=== PATIENT | male | born 1995 | race Caucasian/White ===

== ENCOUNTER 2020-02-07 21:08 | Inpatient (IN) | payer OTHER ==
[~2020-02-07] VITALS: Ht 175.3 cm; Wt 97.3 kg
--- NOTE | 2020-02-07 22:00 | REPVR ---
PROCEDURE INFORMATION: Exam: CT Head Without Contrast Exam date and time: 02/07/2020 9:43 PM Age: 25 years old Clinical indication: Other: New onset hallucinations TECHNIQUE: Imaging protocol: Computed tomography of the head without contrast. Axial and coronal reformatted images were created and reviewed. Radiation optimization: All CT scans at this facility use at least one of these dose optimization techniques: automated exposure control; mA and/or kV adjustment per patient size (includes targeted exams where dose is matched to clinical indication); or iterative reconstruction. COMPARISON: No relevant prior studies available. FINDINGS: Brain: No CT evidence of acute intracranial hemorrhage or acute territorial infarction. No significant mass effect or midline shift. Basal cisterns patent. Cerebral ventricles: Normal in size and configuration. Bones/joints: No acute osseous abnormality. Paranasal sinuses: Unremarkable. No fluid levels. Mastoid air cells: Grossly unremarkable. Soft tissues: Grossly unremarkable. IMPRESSION: No CT evidence of acute intracranial pathology. Electronically signed by: Breezy Ricketts On 02/07/2020 22:00:44 PM
[2020-02-07 22:14] LABS: HEMATOCRIT 46.3 % (42.0-52.0); HEMOGLOBIN 15.5 g/dl (13.5-17.5); MEAN CORPUSCULAR HEMOGLOBIN 27.6 pg (27.0-33.0); MEAN CORPUSCULAR HGB CONC 33.5 g/dl (32.0-36.5); MEAN CORPUSCULAR VOLUME 82.5 fl (80.0-96.0); PLATELET COUNT, AUTOMATED 164 10^3/uL (150-450); RED BLOOD COUNT 5.61 10^6/uL (4.30-6.10)
[2020-02-07 22:32] LABS: AMPHETAMINES LEVEL URINE NEGATIVE (NEGATIVE); BARBITURATES URINE NEGATIVE (NEGATIVE); BENZODIAZEPINES URINE NEGATIVE (NEGATIVE); CANNABINOIDS URINE NEGATIVE (NEGATIVE); COCAINE METABOLITE URINE NEGATIVE (NEGATIVE); METHADONE URINE NEGATIVE (NEGATIVE); OPIATES URINE NEGATIVE (NEGATIVE); PHENCYCLIDINE URINE NEGATIVE (NEGATIVE)
[2020-02-07 22:46] LABS: ALBUMIN 4.7 GM/DL (3.2-5.2); ALT/SGPT 31 U/L (12-78); BILIRUBIN,DIRECT 0.3 MG/DL (0.0-0.2); BILIRUBIN,TOTAL 0.9 MG/DL (0.2-1.0); BLOOD UREA NITROGEN 15 MG/DL (7-18); CALCIUM LEVEL 9.7 MG/DL (8.5-10.1); CARBON DIOXIDE LEVEL 27 MEQ/L (21-32); CHLORIDE LEVEL 105 MEQ/L (98-107); CREATININE FOR GFR 1.21 MG/DL (0.70-1.30); GLOMERULAR FILTRATION RATE > 60.0 (>60); GLUCOSE, FASTING 78 MG/DL (70-100); POTASSIUM SERUM 3.7 MEQ/L (3.5-5.1); SALICYLATE LEVEL < 1.7 MG/DL (5.0-30.0); SODIUM LEVEL 139 MEQ/L (136-145); THYROID STIMULATING HORMONE 0.747 uIU/ML (0.358-3.740); TOTAL PROTEIN 7.7 GM/DL (6.4-8.2)
[2020-02-07 22:47] LABS: ACETAMINOPHEN LEVEL < 2.0 UG/ML (10.0-30.0); ETHYL ALCOHOL (ETHANOL) < 0.003 % (0.000-0.010)
--- NOTE | 2020-02-08 08:41 | ECGEPIP ---
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
[2020-02-09] MEDS ORDERED: NICOTINE 21MG/24HR 1 EA TRANSDERMAL TD ONE (14:00)
[2020-02-09] MEDS ORDERED: traZODone 50 MG TAB PO PRN (17:45)
[2020-02-09] MEDS ORDERED: MAALOX 30 ML SUSP *UDC PO PRN (17:45)
[2020-02-09] MEDS ORDERED: OLANZapine ORAL DISINTEGRATING TAB 5MG PO PRN (17:45)
[2020-02-09] MEDS ORDERED: ACETAMINOPHEN TAB 650MG DOSE (2X325MG) PO PRN (17:45)
[2020-02-09] MEDS ORDERED: MOM 30ML SUSPENSION UDC PO PRN (17:45)
[2020-02-09 20:26] VITALS: BP 127/64
[2020-02-09] MEDS: PALIPERIDONE 3 MG ER TAB (INVEGA) PO SCH (20:32)
[2020-02-10 06:34] VITALS: BP 126/68
--- NOTE | 2020-02-10 12:32 | HPEPDOC ---
[facility] Medical History & Physical Date of Admission Feb 10, 2020 Date of Service: Feb 10, 2020 History and Physical CHIEF COMPLAINT: Medical evaluation HISTORY OF PRESENT ILLNESS: 25-year-old male with no past medical history admitted to psychiatric unit for what the patient describes a mental breakdown as well as eating paranoid and hearing things. I was asked to evaluate the patient for medical problems. Patient tells me he has no past medical problems. I am asked to provide a medical assessment of patient admitted to the psychiatric unit. My assessment is limited to medical problems and does not address any psychiatric problems which is deferred to the in-house psychiatrist. PAST MEDICAL HISTORY: None PAST SURGICAL HISTORY: None SOCIAL HISTORY: Drinks alcohol 1-2 times a week with friends Smokes tobacco daily and a few cigarettes a day sometimes uses a vaporizer Denies illicit drug use FAMILY HISTORY: Patient not aware of any ALLERGIES: Please see below. REVIEW OF SYSTEMS: Constitutional: No sweating or weight loss Eyes: No eye pain or acute blurred vision HENT: No complaints of headache or sore throat Cadiovascular: No Chest pain or palpitations Pulm: No SOB or cough Gastrointestinal: No N/V, no abdominal pain. Genitourinary: No dysuria or hematuria Musculoskeletal: No back pain or joint pain Skin: No rash or jaundice Neurological: No weakness. HOME MEDICATIONS: Please see below. PHYSICAL EXAMINATION: Constitutional: Awake and alert, in no apparent distress ENT: Sclera are clear. Mucosa is moist. Respiratory: Lungs CTA bilaterally. No respiratory distress. No use of accessory muscles. Cardiovascular: RRR S1 and S2 are normal, no murmur Gastrointestinal: Abdomen is soft, non distended, non tender, BS present. Musculoskeletal: No edema. No joint deformities Neurologic: No focal neurological deficit. Mental Status: A&O x3, normal affect Skin: Warm, dry LABORATORY DATA: See below. IMAGING: None MICROBIOLOGY: Please see below. ASSESSMENT/PLAN 25-year-old male with no past medical history admitted to psychiatric unit for what the patient describes a mental breakdown as well as eating paranoid and hearing things. I was asked to evaluate the patient for medical problems. Patient tells me he has no past medical problems. # No medical problems. Psychiatric problems per psych. # Tobacco use: Advised patient to quit smoking. A [facility] Hospitalist Vital Signs Vital Signs Date Time Temp Pulse Resp B/P (MAP) Pulse Ox O2 Delivery O2 Flow Rate FiO2 02/10/20 08:22 Room Air 02/10/20 06:34 98.2 82 14 126/68 (87) 02/09/20 20:26 94 Laboratory Data Labs 24H Laboratory Tests 2 02/09/20 12:52: Coronavirus (COVID-19)(PCR) NEGATIVE Home Medications No Active Prescriptions or Reported Meds Allergies Coded Allergies: No Known Allergies (Unverified , 02/07/20) A-FIB/CHADSVASC A-FIB History Current/History of A-Fib/PAF?: No MARCIN BAKER MD Feb 10, 2020 12:32
[2020-02-10 17:21] VITALS: BP 124/77
[2020-02-10] MEDS ORDERED: NICOTINE 21MG/24HR 1 EA TRANSDERMAL TD ONE (21:45)
[2020-02-10] MEDS: PALIPERIDONE 3 MG ER TAB (INVEGA) PO SCH (22:03)
[2020-02-11 07:24] VITALS: BP 135/74
[2020-02-11] MEDS ORDERED: NICOTINE 21MG/24HR 1 EA TRANSDERMAL TD SCH (09:00)
[2020-02-11] MEDS ORDERED: TRAZ-252 PO (09:18)
--- NOTE | 2020-02-11 13:55 | MHHPE ---
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 He was brought in by his friends. According to the ER report patient came into [facility] ED on his own because he wanted to talk to someone about hearing voices. Patient denies suicidal or homicidal ideations or self harm. He reports hearing voices, started hearing voices on 02/05/2020 after drinking for 2 days. Stated that the voices telling him before he came to [facility] why are you going? We are spying on you. The voices are at times chanting and other times yelling at him. Patient stated voices do not tell him what to do. Patient had stated that his phone may be bugged. He had reported that he had not eaten since 02/05/2020, that he had returned from deployment 5 days ago and has been quarantined. He denies any drug abuse. Reporting not receiving any mental health services and denies any medication. Stated that he had a friend drop him off and would have a ride back to the [facility] if he was discharged. In my interview with him today he reported that he was hearing voices, that the voices were as if he was hearing a conversation, but not able to hear the words distinctly and he stated that he came into the Emergency Department to find out how he could get them to stop. He states that he has had poor sleep for the past 3 days. In the interview he reported that he had no auditory hallucinations at the time. SUICIDE/HOMICIDE HISTORY: Patient reports no past or current suicidal ideation, planning or intent, no history of gestures, no attempts. No reports of any homicidal ideation. No history of violence. ALCOHOL AND DRUG HISTORY: Patient reports that he drank from Saturday to Saturday, came back from deployment; he was in [place] for several months and came back approximately 3 weeks ago. States that he has been drinking because he has been home, but states that this has not been a problem before and he was not drinking during his deployment. PAST PSYCHIATRIC HISTORY: Patient reports that this is his first psychiatric admission, no prior hospitalization, no prior diagnosis, no medications. PAST MEDICAL HISTORY: Patient reports no chronic or acute medical history. States that his only concern is his insomnia, but reports that he has been able to sleep the last night. PAST SURGICAL HISTORY: No history of surgeries. MEDICATIONS: No current medications. ALLERGIES: No known drug allergies. FAMILY HISTORY: Patient reports no psychiatric history, has alcohol history on his father side, no complete suicides and denies that there is any medical history on either side of his family. SOCIAL HISTORY: Patient was born in [place], [place] to both parents. Reports that he has 2 brothers, 1 older, 1 younger. Currently lives at [place] 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 States he has been living at [place] for the last year and a half. No legal issues. Reports that he has no trauma history. Hobbies are working out, playing videos and sports, watching videos. He denies that he has any stressors. Supports are his friends and family. Patient denies any depression, no anxiety. He states that he does not have voices now and states that after his second day here he has not heard any. He believes that his poor sleep was a contributing factor to his admission. 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 He is alert and oriented. Hygiene and grooming is well kempt. Makes good eye contact. Speech is fluid, conversant, normal rate, tone and volume. Language skills are intact. Thought processes are linear, goal oriented, reality based. Thought content, he denies depression, anxiety; reporting auditory hallucinations possibly due to insomnia for the past 3 days. No paranoia. Abstract reasoning and computation: Good. Description of associations: None noted. Patient denies. Description of abnormal or psychotic thoughts: None noted. Patient denies. At this time he had reported in the ED that he had auditory hallucinations currently denying that he hears any voices. Insight and judgment: Good. Orientation: Alert and oriented to person, place, time and situation. Recent and remote memory: Good. Attention span and concentration: Good. Language: Expansive. Fund of knowledge: Average. Mood and affect: Euthymic and congruent to his stated mood. DIAGNOSES: * Adjustment disorder. * Insomnia. TREATMENT PLAN: Patient will be discharged tomorrow. He is not interested in any medication. We will review that tomorrow in his discharge interview. Treatment plan is to observe the patient overnight and see how he does. He will be afforded individual and group therapy, milieu therapy and a safe environment. [facility]
--- NOTE | 2020-02-11 15:45 | MHDSPDOC ---
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 Patient had initially reported no suicidal or homicidal ideation in the ED, and had no complaints of depression, paranoia, tiffany or delusional thinking. He reported that his only complaint was auditory hallucinations which started during several days of poor sleep and no sleep compounded with alcohol. He was amenable in the milieu and did not exhibit any abnormal psychiatric symptoms. His original complaint resolved prior to his admission to the unit. DISCHARGE ASSESSMENT: Patient is being discharged today. The patient did nto meet criteria for involuntary admission due to having a normal mental status exam, good insight into his sitation, He was engaged in the discharge process, being friendly and amenable in behavioral control and haven't been observed to have any concerning psychiatric symptoms. He declined a voluntary admission at this time and is being discharged in good kyle as I am unable to make case for holding the patient against their will. He does not have any historical risk factor of admissions and other interactions with psychiatry. 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 Speech: Is normal rate, tone and volume Language skills are intact Thought processes including: linear and goal oriented Thought content: denies depression, suicidal/homicidal ideation, planning or intent. He is not anxious, denies abnormal psychotic symptoms Abstract reasoning, and computation: Fair Description of associations: None notes, patient denies Description of abnormal or psychotic thoughts: None notes, patient denies Judgment: good Insight: good Orientation: alert and oriented to persona, place, time and situation Recent and remote memory: intact Attention span and concentration: fair Language: expansive Fund of knowledge: good Mood: "I am good Affect: constricted MEDICATIONS ON DISCHARGE: Trazodone 50 mg PRN HS for insomnia PLAN/FOLLOWUP ARRANGEMENTS: [facility] The amount of time spent in the coordination of care for this patient was approximately 20 minutes. Vital Signs/I&Os Vital Signs Date Time Temp Pulse Resp B/P (MAP) Pulse Ox O2 Delivery O2 Flow Rate FiO2 02/11/20 07:24 97.3 94 16 135/74 (94) 97 Room Air Medications Scheduled PRN Trazodone HCl (Trazodone HCl) 50 Mg Tablet, 50 MG PO QHSP PRN for INSOMNIA, #7 Allergies Coded Allergies: No Known Allergies (Unverified , 02/07/20) NEIL WEEKS NP Feb 11, 2020 15:23
== END 2020-02-11 11:45 | disposition home or self-care (01) | DRG 882 ==
LOC: M ED 21:08 → M ED INP 02-09 17:31 → M PSY 02-09 19:45
PROVIDERS: ADMIT Psychiatry & Neurology Psychiatry; ATTEND Psychiatry & Neurology Psychiatry
DX: F43.20 Adjustment disorder, unspecified (principal); F10.10 Alcohol abuse, uncomplicated; F17.210 Nicotine dependence, cigarettes, uncomplicated

== ENCOUNTER 2021-04-01 14:53 | Emergency (ER) | payer OTHER ==
[~2021-04-01] VITALS: Ht 172.7 cm; Wt 97.7 kg
[~2021-04-01 14:53] MED LIST: TRAZ-252 PO
[2021-04-01 17:18] LABS: AMPHETAMINES LEVEL URINE NEGATIVE (NEGATIVE); BARBITURATES URINE NEGATIVE (NEGATIVE); BENZODIAZEPINES URINE NEGATIVE (NEGATIVE); CANNABINOIDS URINE NEGATIVE (NEGATIVE); COCAINE METABOLITE URINE NEGATIVE (NEGATIVE); METHADONE URINE NEGATIVE (NEGATIVE); OPIATES URINE NEGATIVE (NEGATIVE); PHENCYCLIDINE URINE NEGATIVE (NEGATIVE)
[2021-04-01 17:19] LABS: HEMATOCRIT 46.5 % (42.0-52.0); HEMOGLOBIN 15.4 g/dl (13.5-17.5); MEAN CORPUSCULAR HEMOGLOBIN 28.2 pg (27.0-33.0); MEAN CORPUSCULAR HGB CONC 33.1 g/dl (32.0-36.5); MEAN CORPUSCULAR VOLUME 85.2 fl (80.0-96.0); PLATELET COUNT, AUTOMATED 191 10^3/uL (150-450); RED BLOOD COUNT 5.46 10^6/uL (4.30-6.10); WHITE BLOOD COUNT 7.2 10^3/uL (4.0-10.0)
[2021-04-01 17:48] LABS: RSV AMPLIFICATION NEGATIVE (NEGATIVE)
[2021-04-01 17:56] LABS: ACETAMINOPHEN LEVEL < 2.0 UG/ML (10.0-30.0); ALBUMIN 4.4 GM/DL (3.2-5.2); ALT/SGPT 22 U/L (12-78); BILIRUBIN,DIRECT 0.3 MG/DL (0.0-0.2); BILIRUBIN,TOTAL 0.8 MG/DL (0.2-1.0); BLOOD UREA NITROGEN 16 MG/DL (7-18); CALCIUM LEVEL 9.8 MG/DL (8.5-10.1); CARBON DIOXIDE LEVEL 29 MEQ/L (21-32); CHLORIDE LEVEL 108 MEQ/L (98-107); CREATININE FOR GFR 1.16 MG/DL (0.70-1.30); ETHYL ALCOHOL (ETHANOL) < 0.003 % (0.000-0.010); GLOMERULAR FILTRATION RATE > 60.0 (>60); GLUCOSE, FASTING 79 MG/DL (70-100); POTASSIUM SERUM 4.9 MEQ/L (3.5-5.1); SALICYLATE LEVEL < 1.7 MG/DL (5.0-30.0); SODIUM LEVEL 143 MEQ/L (136-145); THYROID STIMULATING HORMONE 0.436 uIU/ML (0.358-3.740); TOTAL PROTEIN 7.6 GM/DL (6.4-8.2)
[2021-04-01] MEDS ORDERED: HOME MED LIST COMPLETE! XX SCH (20:00)
[2021-04-01 22:47] VITALS: BP 137/60
== END 2021-04-01 22:50 ==
LOC: M ED 14:53
DX: R45.851 Suicidal ideations (principal); R44.0 Auditory hallucinations; F41.9 Anxiety disorder, unspecified; F17.210 Nicotine dependence, cigarettes, uncomplicated